=== PATIENT | female | born 1990 | race Caucasian/White ===

== ENCOUNTER 2022-05-04 06:38 | Emergency (ER) | payer BC ==
[~2022-05-04] VITALS: Ht 162.6 cm; Wt 50.8 kg
[2022-05-04] MEDS ORDERED: BUPROPION XL150 MG PO (06:50)
[2022-05-04] MEDS ORDERED: EPIN0.3P IM (07:12)
[2022-05-04] MEDS ORDERED: PREDNISONE20 MG PO (07:12)
[2022-05-04] MEDS ORDERED: PEPCID40 MG PO (07:12)
== END 2022-05-04 10:21 | disposition home or self-care (01) ==
LOC: ED 06:38
DX: T78.2XXA Anaphylactic shock, unspecified, initial encounter (principal); Z87.891 Personal history of nicotine dependence; Z79.899 Other long term (current) drug therapy
CPT/HCPCS: 36415; 80053; 85025; 94640; 96374; 96375; 99285-25; J1100; J1200; J7030

== ENCOUNTER 2024-10-24 10:22 | Inpatient (IN) | payer BC ==
[~2024-10-24] VITALS: Ht 162.6 cm; Wt 62.6 kg
[~2024-10-24 10:22] MED LIST: BUPROPION XL150 MG PO; EPIN0.3P IM; PEPCID40 MG PO; PREDNISONE20 MG PO
[2024-10-25] MEDS ORDERED: CALCIUM CARBONATE 500 MG CHEW PO PRN (00:30)
[2024-10-25] MEDS ORDERED: miSOPROStoL 25 MCG TAB PV SCH (00:30)
[2024-10-25] MEDS ORDERED: MAGNESIUM HYDROXIDE/AL HYDROX 30 ML CUP PO PRN (00:30)
[2024-10-25 00:53] LABS: AMPHETAMINES, UR NEGATIVE (NEGATIVE); BARBITURATES, UR NEGATIVE (NEGATIVE); BENZODIAZEPINES, UR NEGATIVE (NEGATIVE); BUPRENORPHINE,UR NEGATIVE (NEGATIVE); COCAINE, UR NEGATIVE (NEGATIVE); MARIJUANA (THC), UR NEGATIVE (NEGATIVE); MDMA, UR NEGATIVE (NEGATIVE); METHADONE, UR NEGATIVE (NEGATIVE); METHAMPHETAMINE, UR NEGATIVE (NEGATIVE); OPIATES, UR NEGATIVE (NEGATIVE); OXYCODONE, UR NEGATIVE (NEGATIVE); PHENCYCLIDINE, UR NEGATIVE (NEGATIVE); TRICYCLIC ANTIDEPRESSANT, UR NEGATIVE (NEGATIVE)
[2024-10-25 01:03] LABS: HEMATOCRIT 36.6 % (35.0-50.0); MCH 32.9 (27-36); MCHC 35.4 g/dl (30-36); RBC 3.94 M/ul (4.3-5.7); RDW 13.2 (10.5-15.0)
[2024-10-25 02:18] VITALS: BP 118/82
[2024-10-25 05:49] LABS: ABO A; ANTIBODY SCREEN NEGATIVE; RH POSITIVE
[2024-10-25] MEDS ORDERED: OXYTOCIN/0.9 % SODIUM CHLORIDE 30 UNITS/500 ML BAG IV SCH (06:15)
[2024-10-25] MEDS ORDERED: LACTATED RINGER'S 1,000 ML IV PRN (06:15)
[2024-10-25] MEDS ORDERED: PENICILLIN G POTASSIUM 5 MUNITS in SODIUM CHLORIDE 0.9% 100 ML IV ONE ×2 (06:15→14:30)
[2024-10-25] MEDS ORDERED: LACTATED RINGER'S 1,000 ML IV SCH (06:15)
[2024-10-25] MEDS ORDERED: PENICILLIN G POTASSIUM 2.5 MUNITS in DEXTROSE 5% 100 ML IV SCH ×3 (06:18→18:30)
[2024-10-25] MEDS ORDERED: OXYTOCIN/0.9 % SODIUM CHLORIDE 500 ML IV SCH ×2 (09:00→19:30)
[2024-10-25] MEDS ORDERED: FAMOTIDINE 20 MG/ 2 ML VIAL IV ONE (18:00)
[2024-10-25] MEDS ORDERED: ACETAMINOPHEN 325 MG TAB PO PRN (19:30)
[2024-10-25] MEDS ORDERED: MAGNESIUM HYDROXIDE 30 ML UDC PO PRN (19:30)
[2024-10-25] MEDS ORDERED: LIDOCAINE 2% VISCOUS 6 ML SYR TOP ONE (19:30)
[2024-10-25] MEDS ORDERED: HYDROCODONE/ACETA 5/325 TAB PO PRN (19:30)
[2024-10-25] MEDS ORDERED: WITCH HAZEL/GLYCERIN 1 EA PAD TOP PRN (19:30)
[2024-10-25] MEDS ORDERED: HYDROCORTISONE ACETATE 25 MG SUPP PR PRN (19:30)
[2024-10-25] MEDS ORDERED: BENZOCAINE 60 ML AEROSOL TOP PRN (19:30)
[2024-10-25] MEDS ORDERED: TRANEXAMIC ACID IN NACL,ISO-OS 100 ML IV ONE ×2 (20:55→21:55)
[2024-10-25] MEDS ORDERED: SENNOSIDES/DOCUSATE 1 EA TAB PO SCH (21:00)
[2024-10-25] MEDS ORDERED: TRANEXAMIC ACID IN NACL,ISO-OS 1,000 MG/100 ML PIGGYBACK IV ONE ×2 (21:00→22:00)
[2024-10-25] MEDS ORDERED: miSOPROStoL 200 MCG TAB PR ONE ×2 (21:00→23:30)
[2024-10-25] MEDS ORDERED: fentaNYL citrate 100 MCG/2 ML VIAL ONE (21:14)
[2024-10-25] MEDS ORDERED: fentaNYL citrate 100 MCG/2 ML VIAL IV ONE ×2 (21:15→23:45)
[2024-10-25] MEDS ORDERED: METHYLERGONOVINE MALEATE 0.2 MG/ML AMP IM ONE (21:15)
[2024-10-25 21:44] LABS: HEMOGLOBIN 11.1 g/dL (12.0-18.0); MCH 32.7 (27-36); MCHC 34.8 g/dl (30-36); MCV 94.1 fl (81-99); RBC 3.4 M/ul (4.3-5.7); RDW 13.7 (10.5-15.0)
[2024-10-25 21:55] LABS: INR 1.14 (0.80-1.30); PROTIME 14.2 Sec (11.2-14.2)
[2024-10-25 21:57] LABS: PARTIAL THROMBOPLASTIN TIME 28.1 Sec (22.9-41.3)
[2024-10-25 23:50] LABS: IS CROSSMATCH COMPATIBLE
[2024-10-25 23:53] LABS: ABO A; RH POSITIVE
[2024-10-26 00:14] LABS: BASOPHILS 0.1 % (0-2); HEMATOCRIT 25.9 % (35.0-50.0); LYMPHOCYTES 7.3 % (24-44); MCH 32.3 (27-36); MCHC 34.6 g/dl (30-36); MCV 93.3 fl (81-99); MONOCYTES 5.2 % (0-12); NEUTROPHILS 87.4 % (39-80); PLATELET COUNT 103 K/uL (140-440); RBC 2.77 M/ul (4.3-5.7); RDW 13.3 (10.5-15.0)
--- NOTE | 2024-10-26 00:34 | PR ---
[facility] [address] [place], [place] [address] Signed PP Progress Notes Datetime Report Generated by CPN: 10/26/2024 00:34 SUBJECTIVE: [id number] Pain: Within Normal Limits Vital Signs: [id number] Vital Signs: Reviewed; Within Normal Limits EXAM: Ongoing Cardiovascular: Normal Abdomen/Uterus: Abnormal Lochia: Abnormal Vulva/Perineum: Normal Exam Comments: Distended uterus with clots noted IMPRESSION/PLAN/PROCEDURES: [id number] Other Impression: hemorrhage Other Plans: CBC, DIC panel, second IV Procedures: None Progress Notes: 2756 total EBL. Called secondary to continued bleeding. An additional 400 cc of clots were expressed. H/H was drawn and noted to be 9/25.9. plt were 103. 800 additional cytotec was placed rectally and the Arelis was placed. Placement was confirmed by ultrasound. vaginal ballon was inflated to 60cc. The suction was placed on 80mmHg with good return. Signing Physician: Alexa Lopez MD Copies: ~ *Electronically Signed* 10/26/24 0034 ALEXA LOPEZ MD PATIENT NAME: FREDY HALL PROGRESS NOTE DATE OF : 90 PHYSICIAN: ALEXA LOPEZ MD RPT #: [id number] REPORT IS CONFIDENTIAL AND NOT TO BE RELEASED WITHOUT AUTHORIZATION
[2024-10-26 00:38] LABS: IS CROSSMATCH COMPATIBLE
[2024-10-26 01:01] LABS: INR 1.16 (0.80-1.30); PROTIME 14.3 Sec (11.2-14.2)
[2024-10-26 01:03] LABS: PARTIAL THROMBOPLASTIN TIME 27.5 Sec (22.9-41.3)
[2024-10-26 06:35] LABS: HEMATOCRIT 30.3 % (35.0-50.0); HEMOGLOBIN 10.5 g/dL (12.0-18.0); MCH 30.8 (27-36); MCHC 34.4 g/dl (30-36); MCV 89.3 fl (81-99); RBC 3.4 M/ul (4.3-5.7)
[2024-10-26 06:46] LABS: INR 1.22 (0.80-1.30); PROTIME 14.9 Sec (11.2-14.2)
[2024-10-26 06:48] LABS: PARTIAL THROMBOPLASTIN TIME 29.2 Sec (22.9-41.3)
[2024-10-26] MEDS ORDERED: CEFAZOLIN SODIUM 2 GM/20 ML SYR IV ONE (07:15)
--- NOTE | 2024-10-26 07:22 | PR ---
[facility] [address] [facility] [place], [place] [address] Signed PP Progress Notes Datetime Report Generated by CPN: 10/26/2024 07:22 SUBJECTIVE: [id number] Pain: Within Normal Limits Nausea/Vomiting: Denies Flatus: Yes Vital Signs: [id number] Vital Signs: Reviewed; Within Normal Limits EXAM: Ongoing Cardiovascular: Normal Respiratory: Normal Abdomen/Uterus: Normal Lochia: Normal Vulva/Perineum: Not Done Breasts: Not Done CVA Tenderness: Not Done Extremities: Normal Exam Comments: Distended uterus with clots noted IMPRESSION/PLAN/PROCEDURES: [id number] Impression: Normal Progression Other Impression: Post hemorrhage Plan: Continue Present Management; Antibiotic Therapy Other Plans: Anticipate removing Arelis around 1300 Procedures: None Other Procedures: Arelis placement Progress Notes: H/H this am 10.5/30.3 PT mildly elevated at 14.9 fibrinogen 283. Total output in Arelis canister 125. Nursing well. Pain well controlled. Signing Physician: Alexa Lopez MD Copies: ~ *Electronically Signed* 10/26/24 07 ALEXA LOPEZ MD PATIENT NAME: FREDY HALL PROGRESS NOTE DATE OF : 90 PHYSICIAN: ALEXA LOPEZ MD RPT #: [id number] REPORT IS CONFIDENTIAL AND NOT TO BE RELEASED WITHOUT AUTHORIZATION
[2024-10-26 13:26] LABS: BASOPHILS 0.5 % (0-2); EOSINOPHILS 0.5 % (0-6); HEMATOCRIT 30.3 % (35.0-50.0); HEMOGLOBIN 10.6 g/dL (12.0-18.0); LYMPHOCYTES 18.7 % (24-44); MCH 31.3 (27-36); MCHC 35.1 g/dl (30-36); MCV 89.1 fl (81-99); NEUTROPHILS 73.3 % (39-80); PLATELET COUNT 115 K/uL (140-440); RBC 3.39 M/ul (4.3-5.7); RDW 15.4 (10.5-15.0)
[2024-10-27 05:46] LABS: BASOPHILS 0.8 % (0-2); EOSINOPHILS 1.5 % (0-6); HEMATOCRIT 27.5 % (35.0-50.0); HEMOGLOBIN 9.7 g/dL (12.0-18.0); LYMPHOCYTES 18.8 % (24-44); MCH 31.6 (27-36); MCHC 35.2 g/dl (30-36); MCV 89.7 fl (81-99); MONOCYTES 5.5 % (0-12); NEUTROPHILS 73.4 % (39-80); PLATELET COUNT 110 K/uL (140-440); RBC 3.06 M/ul (4.3-5.7); RDW 15.2 (10.5-15.0)
--- NOTE | 2024-10-27 08:50 | PR ---
[facility] [address] [facility] [place], [place] [address] Signed PP Progress Notes Datetime Report Generated by CPN: 10/27/2024 08:50 SUBJECTIVE: [id number] Pain: Within Normal Limits Nausea/Vomiting: Denies Flatus: Yes Vital Signs: [id number] Vital Signs: Reviewed; Within Normal Limits EXAM: Ongoing Cardiovascular: Normal Respiratory: Normal Abdomen/Uterus: Normal Lochia: Normal Vulva/Perineum: Normal Breasts: Normal CVA Tenderness: Not Done Extremities: Normal Incision: Not Applicable Progress: Normal Exam Comments: Distended uterus with clots noted IMPRESSION/PLAN/PROCEDURES: [id number] Impression: Normal Progression Other Impression: Post hemorrhage Plan: Continue Present Management; Discharge Other Plans: Anticipate removing Arelis around 1300 Procedures: None Other Procedures: Arelis placement Progress Notes: PAtient without concerns this am. Denies palpitations, chest pain, dizziness. Minimal lochia. Desires D/C home today. Signing Physician: Alexa Lopez MD Copies: ~ *Electronically Signed* 10/27/24 0850 ALEXA LOPEZ MD PATIENT NAME: FREDY HALL PROGRESS NOTE DATE OF : 90 PHYSICIAN: ALEXA LOPEZ MD RPT #: [id number] REPORT IS CONFIDENTIAL AND NOT TO BE RELEASED WITHOUT AUTHORIZATION
== END 2024-10-27 12:05 | disposition home or self-care (01) | DRG 768 ==
LOC: FBC 10:22
PROVIDERS: Obstetrics & Gynecology; ADMIT Advanced Practice Midwife; ATTEND Advanced Practice Midwife
PROC: 10E0XZZ Delivery of Products of Conception, External Approach (ICD-10-PCS; principal; 2024-10-25)
PROC: 0W3R7ZZ Control Bleeding in Genitourinary Tract, Via Natural or Artificial Opening (ICD-10-PCS; 2024-10-25)
PROC: 0HQ9XZZ Repair Perineum Skin, External Approach (ICD-10-PCS; 2024-10-25)
PROC: 3E0R3BZ Introduction of Anesthetic Agent into Spinal Canal, Percutaneous Approach (ICD-10-PCS; 2024-10-25)
PROC: 00HU33Z Insertion of Infusion Device into Spinal Canal, Percutaneous Approach (ICD-10-PCS; 2024-10-25)
PROC: 10907ZC Drainage of Amniotic Fluid, Therapeutic from Products of Conception, Via Natural or Artificial Opening (ICD-10-PCS; 2024-10-25)
DX: O99.12 Other diseases of the blood and blood-forming organs and certain disorders involving the immune mechanism complicating childbirth (principal); Z37.0 Single live birth; O72.1 Other immediate postpartum hemorrhage; Z3A.39 39 weeks gestation of pregnancy; O70.0 First degree perineal laceration during delivery; O99.824 Streptococcus B carrier state complicating childbirth; D69.6 Thrombocytopenia, unspecified; O99.334 Smoking (tobacco) complicating childbirth; F17.210 Nicotine dependence, cigarettes, uncomplicated; Z88.8 Allergy status to other drugs, medicaments and biological substances; Z98.890 Other specified postprocedural states; Z79.899 Other long term (current) drug therapy
CPT/HCPCS: 36415; 36430; 80307; 85025; 85027; 85384; 85610; 85730; 86850; 86900; 86901; 86922; A9270; J0690; J2210; J2540; J3010; J7121; P9016